=== PATIENT | female | born 1980 | race Caucasian/White ===

== ENCOUNTER 2023-07-10 11:59 | Observation (INO) | payer MEDICAID, SELFPAY ==
[2023-07-10] VITALS (8 sets, daily range): BP systolic 118–142; BP diastolic 67–96; PULSE 67–89; RESP 16–18; TEMP 36.1–36.8; O2SAT 96–100; BMI 16.6
--- NOTE | 2023-07-10 12:43 | EX.ED.SAOD ---
HPI History of Present Illness Chief Complaint: Substance Abuse Informant: patient Narrative Narrative: 42-year-old female seeking detox for the abuse of alcohol and crack cocaine. Patient states that she did have a long period of sobriety in her life. She states for the past several months she has been drinking at least a liter or more of vodka per day. She has also been using crack cocaine and cannabis. She smokes 4 to 5 cigarettes a day only because I am smoking the other things more. She states that she is reached a point where she no longer wants to do this and needs to get her life in order. The patient denies any upcoming/pending legal issues. She states she was once diagnosed with hepatitis C and has subsequently been treated for that. She would like an HIV test. Last drink 3 hours ago. She denies any open wounds or abscesses. [facility] Medical History Substance abuse Alcohol abuse Anxiety Depression Restless leg syndrome Insomnia Home Medications ?Medication ?Instructions ?Recorded ?Last Taken ?Type buprenorphine 8 mg-naloxone 2 mg 1 film sublingual BID OPIOID USE 07/10/23 Unknown History sublingual film (Suboxone) DISORDER Allergy/AdvReac Type Severity Reaction Status Date / Time Penicillins (PCN) Allergy Intermediate SWOLLEN Verified 07/10/23 12:00 THROAT Social History Smoking Status: Current every day smoker tobacco type: cigarettes ROS ROS ED Constitutional Constitutional ED: Denies chills, fever(s) or weight loss Eyes Eyes: Denies change in vision or diplopia ENT ENT ED: Denies ear pain, rhinorrhea or sore throat Cardiovascular Cardiovascular: Denies chest pain, orthopnea, palpitations or racing heartbeat Respiratory/Chest Respiratory/Chest: Denies cough, dyspnea or orthopnea Gastrointestinal Gastrointestinal: Denies abdominal pain, diarrhea, nausea or vomiting Genitourinary Genitourinary ED: Denies dysuria, hematuria or urinary frequency Musculoskeletal Musculoskeletal: Denies arthralgias or myalgias Integumentary Denies abscess or rash Neurologic Neurologic: Denies headache(s) or weakness Psychiatric Psychiatric: Reports anxiety and depression; Denies suicidal ideation or suicidal thoughts Endocrine Endocrinology: Denies polydipsia, polyphagia or polyuria Allergic/Immunologic Allergic/Immunologic ED: Denies mouth swelling, tongue swelling or urticaria EXAM Physical Exam Const Vital Signs: 07/10/23 12:01 07/10/23 13:10 07/10/23 14:00 Temperature 97.6 F L 98.2 F 98.2 F Temperature Source Temporal Oral Pulse Rate 89 67 72 Respiratory Rate 16 16 16 Blood Pressure 125/94 H 127/96 H 121/67 H Blood Pressure Mean 104 106 85 Blood Pressure Source Monitor Blood Pressure Position Semi-Fowlers Blood Pressure Location Left Arm Pulse Ox 96 99 99 Oxygen Delivery Method Room Air Room Air Positive well nourished and well developed General Appearance ED: well developed HEENT Reports normocephalic, head/scalp atraumatic and moist mucous membranes Eyes PERRL and EOMs intact bilaterally Neck no lymphadenopathy, supple and no JVD Resp normal respiratory effort and clear to auscultation bilaterally Cardio regular rate, regular rhythm and no murmurs GI normal to inspection, nondistended, normoactive bowel sounds and non-tender Palpation: soft Back/Spine no CVA tenderness and normal ROM Extremity normal to inspection General Extremety ED: Negative for edema General Extremity: Negative for edema Neuro oriented x3 and CN's II-XII intact bilaterally Sensorium / Orientation: alert Motor Exam: strength 5/5 throughout Psych mental status grossly normal Mood & Affect: anxious and tearful; Negative for depressed Skin no rashes or lesions noted and no wounds MDM MDM MDM Narrative Medical decision making narrative: Basic blood work was obtained per ED addiction protocol. She is positive for cocaine MDMA and alcohol is 115. test negative. Normal liver enzymes. Plan is admission to the hospital for alcohol detox. Patient also received a dose of transdermal nicotine. History & Record Review Discussion w/independent historian: Patient Lab Data Attestation: I reviewed the patient's lab results. Labs: Laboratory Results - last 24 hr 07/10/23 07/10/23 12:50 13:05 WBC 7.4 RBC 4.44 Hgb 13.6 Hct 40.9 MCV 92.1 MCH 30.6 MCHC 33.3 RDW Std Deviation 45.9 H RDW Coeff of Maryann 13.5 Plt Count 266 MPV 9.3 Immature Gran % (Auto) 0.300 Neut % (Auto) 59.8 Lymph % (Auto) 31.2 [place] % (Auto) 6.4 Eos % (Auto) 1.6 Baso % (Auto) 0.7 Absolute Neuts (auto) 4.4 Absolute Lymphs (auto) 2.30 Nucleated RBC % 0 Sodium 138 Potassium 3.6 Chloride 106 Carbon Dioxide 27.0 Anion Gap 5 BUN 5 L Creatinine 0.57 Estim Creat Clear Calc 90.19 Est GFR (MDRD) Af Amer 146 Est GFR (MDRD) Non-Af 121 BUN/Creatinine Ratio 8.7 L Glucose 78 Calcium 8.1 L Total Bilirubin 0.30 Direct Bilirubin 0.11 AST 13 L ALT 10 L Alkaline Phosphatase 63 Total Protein 6.5 Albumin 3.6 Globulin 2.9 Serum , Qual NEGATIVE Urine Opiates Screen NEGATIVE Urine Methadone Screen NEGATIVE Ur Barbiturates Screen NEGATIVE Ur Phencyclidine Scrn NEGATIVE Ur Amphetamines Screen NEGATIVE MDMA (Ecstasy) Screen POSITIVE H U Benzodiazepines Scrn NEGATIVE Urine Cocaine Screen POSITIVE H U Cannabinoids Screen NEGATIVE Ur Drug Screen Comment Ethyl Alcohol 115.0 HIV 1&2 Antibody Non-Reactive Discharge Plan Dx/Rx/DC Orders Clinical Impression: Alcohol abuse, Crack cocaine use Disposition Disposition: Acute Care Hospital [facility]
[2023-07-10 13:00] LABS: Absolute Neutrophil Count 4.4 X10^3/uL (2.0-7.7); Basophil# 0.05 X10^3/uL; Basophil% 0.7 % (0-1); Eosinophil# 0.12 X10^3/uL; Eosinophils% 1.6 % (0-5); Hematocrit 40.9 % (37-47); Hemoglobin 13.6 g/dL (12.0-15.0); Lymphocyte % 31.2 % (19-41); Mean Corp Hgb Conc 33.3 g/dL (32-36); Mean Corpuscular Hgb 30.6 pg (27.0-32.0); Mean Corpuscular Volume 92.1 fL (81-99); Mean Platelet Vol. 9.3 fl (6.2-12.0); Monocyte# 0.47 X10^3/uL; Monocyte% 6.4 % (0-10); NRBC Flagged by Analyzer 0 % (0-5); Neutrophil # 4.42 X10^3/uL (2.7-7.7); Neutrophil % 59.8 % (47-70); Platelet Count 266 K/mm3 (150-450); RBC Distribution Width CV 13.5 % (11.6-14.6); RBC Distribution Width SD 45.9 fl (35.1-43.9); Red Blood Count 4.44 M/mm3 (4.2-5.4); White Blood Count 7.4 K/mm3 (4.4-11.0)
[2023-07-10 13:13] LABS: Internal QC Validated? YES +Cl - CLEAR BKGD; Pregnancy, Serum, hCG Quali. NEGATIVE Negative
[2023-07-10 13:21] LABS: AST(SGOT) 13 U/L (15-37); Alanine Aminotransfer ALT/SGPT 10 U/L (13-56); Albumin, Serum 3.6 g/dL (3.2-5.0); Alkaline Phosphatase 63 U/L (45-117); Anion Gap 5 (5-15); BUN 5 mg/dL (7-18); BUN/Creat Ratio 8.7 RATIO (10-20); Bilirubin, Direct 0.11 mg/dL (0.00-0.30); Calcium,Total 8.1 mg/dL (8.5-10.1); Chloride 106 mmol/L (98-107); Creatinine, Serum 0.57 mg/dL (0.55-1.02); EST Glomerular Filtration Rate 121 mL/min (>60); Est Glom Filt Rate - Afr Amer 146 mL/min (>60); Estimated Creatinine Clearance 90.19 ml/min; Globulin 2.9 g/dL (2.2-4.2); Glucose 78 mg/dL (74-106); Potassium 3.6 mmol/L (3.5-5.1); Protein, Total 6.5 g/dL (6.4-8.2); Sodium Level 138 mmol/L (136-145)
[2023-07-10 13:46] LABS: Amphetamine Urine VISTA NEGATIVE (<1000 ng/mL); Barbiturate Urine VISTA NEGATIVE (< 200 ng/mL); Benzodiazepine Urine VISTA NEGATIVE (< 200 ng/mL); Cocaine Urine VISTA POSITIVE (< 300 ng/mL); Ecstacy Urine VISTA POSITIVE (< 500 ng/mL); Methadone Urine VISTA NEGATIVE (< 300 ng/mL); PCP Urine VISTA NEGATIVE (< 25 ng/mL); THC Urine VISTA NEGATIVE (< 50 ng/mL); Vista UDS pH Range 6
[2023-07-10 13:48] LABS: HIV - WCH Non-Reactive (Nonreactive)
--- NOTE | 2023-07-10 13:50 | HP.PCM.HOS_ITS ---
HPI - General General Date of Admission: 07/10/23 Date of Service: 07/10/23 Chief Complaint: alcohol detox HPI Narrative CHELE YOU, is a 42 F with a PMh as outlined who presents via the ED on 07/10/2023 for acute alcohol withdrawal, seeking detox. Jason drinks about a liter of vodka daily and has been using crack cocaine and cannabis. She says she was sober for about 200 days, but subsequently started using again 60 days ago; she started drinking again in a bid to make her stop using crack cocaine. She also smokes and says she was diagnosed with hep C in the past but is s/p treatment. SHe denied any chest pain, palpitations, dizziness, nausea, vomiting or any other symptoms. Review of systems is otherwise negative. Vitals were Bp of 127/96, CT of 67, RR of 16 and temp of 98.2F. She was saturating at 99% on room air. CBC was unremarkable. CMP was also unremarkable. Urine tox was positive for MDMA and cocaine. Serum alcohol level was 115, and HIV screen was negative. She is being admitted to be managed for acute alcohol withdrawal. [facility] Medical History Substance abuse Alcohol abuse Anxiety Depression Restless leg syndrome Insomnia Home Medications ?Medication ?Instructions ?Recorded ?Last Taken ?Type buprenorphine 8 mg-naloxone 2 mg 1 film sublingual BID OPIOID USE 07/10/23 Unknown History sublingual film (Suboxone) DISORDER Allergy/AdvReac Type Severity Reaction Status Date / Time Penicillins (PCN) Allergy Intermediate SWOLLEN Verified 07/10/23 12:00 THROAT Social History Smoking Status: Current every day smoker tobacco type: cigarettes ROS Constitutional Constitutional: Denies anorexia, chills, fatigue, fever(s), malaise or weakness Eyes Eyes: Denies change in vision ENT HEENT: Denies dysphagia Cardiovascular Cardiovascular: Denies chest pain, dyspnea on exertion, edema, lightheadedness, orthopnea, palpitations, paroxysmal nocturnal dyspnea, rapid heart rate or syncope Respiratory/Chest Respiratory/Chest: Denies cough, dyspnea, shortness of breath at rest or shortness of breath with exertion Gastrointestinal Gastrointestinal: Denies abdominal pain, diarrhea, dyspepsia, nausea or vomiting Genitourinary Genitourinary: Denies difficulty urinating or nocturia Musculoskeletal Musculoskeletal: Denies back pain or joint swelling Neurologic Neurologic: Denies confusion, dizziness, focal weakness, headache(s), numbness or syncope Psychiatric Psychiatric: Denies anxiety Vital Signs Vital Signs Vital Signs: 07/10/23 12:01 07/10/23 13:10 Temperature 97.6 F L 98.2 F Temperature Source Temporal Oral Pulse Rate 89 67 Respiratory Rate 16 16 Blood Pressure 125/94 H 127/96 H Blood Pressure Mean 104 106 Blood Pressure Source Monitor Blood Pressure Position Semi-Fowlers Blood Pressure Location Left Arm Pulse Ox 96 99 Oxygen Delivery Method Room Air Room Air Weight Weight: 100 lb Body Mass Index (BMI) 16.6 Physical Exam Const alert, oriented x3, no apparent distress and average body habitus General Appearance: cooperative HEENT normocephalic, head/scalp atraumatic, hearing grossly normal bilaterally and moist oral mucous membranes Eyes PERRL, EOMs intact bilaterally and conjunctivae normal Neck no lymphadenopathy and supple Resp normal respiratory effort, no retractions, no use of accessory muscles and clear to auscultation bilaterally Cardio regular rate, regular rhythm, S1 normal heart sound, S2 normal heart sound and no murmurs GI normal to inspection, nondistended, normoactive bowel sounds, soft to palpation, non-tender and non-distended Extremity normal to inspection, full ROM and no clubbing, cyanosis or edema Neuro oriented x3, CN's II-XII intact bilaterally, moves all extremities and no focal motor deficits Sensorium / Orientation: awake and alert Motor Exam: strength 5/5 throughout Psych affect normal Results Lab / Micro Data 07/10/23 12:50 07/10/23 12:50 Labs: Laboratory Results - last 24 hr 07/10/23 12:50: WBC 7.4, RBC 4.44, Hgb 13.6, Hct 40.9, MCV 92.1, MCH 30.6, MCHC 33.3, RDW Std Deviation 45.9 H, RDW Coeff of Maryann 13.5, Plt Count 266, MPV 9.3, Immature Gran % (Auto) 0.300, Neut % (Auto) 59.8, Lymph % (Auto) 31.2, [place] % (Auto) 6.4, Eos % (Auto) 1.6, Baso % (Auto) 0.7, Absolute Neuts (auto) 4.4, Absolute Lymphs (auto) 2.30, Nucleated RBC % 0, Sodium 138, Potassium 3.6, Chloride 106, Carbon Dioxide 27.0, Anion Gap 5, BUN 5 L, Creatinine 0.57, Estim Creat Clear Calc 90.19, Est GFR (MDRD) Af Amer 146, Est GFR (MDRD) Non-Af 121, B UN/Creatinine Ratio 8.7 L, Glucose 78, Calcium 8.1 L, Total Bilirubin 0.30, Direct Bilirubin 0.11, AST 13 L, ALT 10 L, Alkaline Phosphatase 63, Total Protein 6.5, Albumin 3.6, Globulin 2.9, Serum , Qual NEGATIVE, Ethyl Alcohol 115.0, HIV 1&2 Antibody Non-Reactive 07/10/23 13:05: Urine Opiates Screen NEGATIVE, Urine Methadone Screen NEGATIVE, Ur Barbiturates Screen NEGATIVE, Ur Phencyclidine Scrn NEGATIVE, Ur Amphetamines Screen NEGATIVE, MDMA (Ecstasy) Screen POSITIVE H, U Benzodiazepines Scrn NEGATIVE, Urine Cocaine Screen POSITIVE H, U Cannabinoids Screen NEGATIVE, Ur Drug Screen Comment Assessment & Plan Assessment/Plan (1) Alcohol abuse: PLAN: Plan #Acute alcohol withdrawal * admit to med surg * drinks about a liter of vodka daily * urine tox positive for MDMA and cocain. Serum alcohol level is 115. * start on alcohol withdrawal protocol with phenobarbital * PO thiamine, folic acid and multivites. * monitor CIWA score * #polysubstance abuse: urine positive for MDMA and cocaine. Counseled to quit. #Nicotine dependence: counseled to quit. Nicotine patch 21mg daily. #History of hep C: says she was treated for it. DVT prophylaxis; low risk. encourage to ambulate. Charges/Coding Visit Charges Inpatient E&M: 23749 Init Hosp L3
--- NOTE | 2023-07-10 14:21 | NURSING ---
MED SURG [facility] ALCOHOL DETOX
[2023-07-10] MEDS: LORazepam 1 MG Tablet PO (18:04)
[2023-07-10] MEDS: hydrOXYzine PAM 25 MG Capsule 50 MG PO (18:54)
[2023-07-10] MEDS: Ondansetron 8 MG Tablet PO (18:54)
[2023-07-10] MEDS: Dicyclomine 10 MG Capsule 20 MG PO (18:55)
[2023-07-10] MEDS: Phenobarbital 32.4 MG Tablet 64.8 MG PO ×2 (18:55→22:00)
[2023-07-10] MEDS: traZODone 100 MG Tablet PO (21:55)
[2023-07-10] MEDS: buprenorphine HCL 8 MG TAB.SUBL SL (21:55)
[2023-07-10] MEDS: Gabapentin 300 MG Capsule PO (21:55)
[2023-07-11] VITALS (7 sets, daily range): BP systolic 90–124; BP diastolic 56–78; PULSE 60–78; RESP 16–18; TEMP 36.5–36.8; O2SAT 97–100
[2023-07-11] MEDS: Phenobarbital 32.4 MG Tablet 64.8 MG PO ×6 (02:12→22:00)
[2023-07-11] MEDS: hydrOXYzine PAM 25 MG Capsule 50 MG PO (06:13)
--- NOTE | 2023-07-11 07:15 | PN.HOSP_ITS ---
Reason for Visit Reason for Visit: Diagnoses Alcohol abuse, uncomplicated (07/10/23) Subjective Subjective Patient is a 42-year-old lady with history of polysubstance abuse admitted with acute alcohol withdrawal admitted to the regular nursing floor where she is currently being managed Objective Data Objective Data Vital Signs: Vital Signs Temp Pulse Resp BP Pulse Ox O2 Del Method 97.9 F 60 16 122/74 H 98 Room Air 07/11/23 06:08 07/11/23 06:08 07/11/23 06:08 07/11/23 06:08 07/11/23 06:08 07/11/23 06:08 Oxygen Delivery Method Room Air Weight: 45.359 kg Body Mass Index (BMI) 16.6 Lab / Micro Data 07/10/23 12:50 07/10/23 12:50 Labs: Laboratory Results - last 24 hr 07/10/23 12:50: WBC 7.4, RBC 4.44, Hgb 13.6, Hct 40.9, MCV 92.1, MCH 30.6, MCHC 33.3, RDW Std Deviation 45.9 H, RDW Coeff of Maryann 13.5, Plt Count 266, MPV 9.3, Immature Gran % (Auto) 0.300, Neut % (Auto) 59.8, Lymph % (Auto) 31.2, [place] % (Auto) 6.4, Eos % (Auto) 1.6, Baso % (Auto) 0.7, Absolute Neuts (auto) 4.4, Absolute Lymphs (auto) 2.30, Nucleated RBC % 0, Sodium 138, Potassium 3.6, Chloride 106, Carbon Dioxide 27.0, Anion Gap 5, BUN 5 L, Creatinine 0.57, Estim Creat Clear Calc 90.19, Est GFR (MDRD) Af Amer 146, Est GFR (MDRD) Non-Af 121, B UN/Creatinine Ratio 8.7 L, Glucose 78, Calcium 8.1 L, Total Bilirubin 0.30, Direct Bilirubin 0.11, AST 13 L, ALT 10 L, Alkaline Phosphatase 63, Total Protein 6.5, Albumin 3.6, Globulin 2.9, Serum , Qual NEGATIVE, Ethyl Alcohol 115.0, HIV 1&2 Antibody Non-Reactive 07/10/23 13:05: Urine Opiates Screen NEGATIVE, Urine Methadone Screen NEGATIVE, Ur Barbiturates Screen NEGATIVE, Ur Phencyclidine Scrn NEGATIVE, Ur Amphetamines Screen NEGATIVE, MDMA (Ecstasy) Screen POSITIVE H, U Benzodiazepines Scrn NEGATIVE, Urine Cocaine Screen POSITIVE H, U Cannabinoids Screen NEGATIVE, Ur Drug Screen Comment Physical Exam Narrative GENERAL: cooperative HEENT: Atraumatic; normocephalic EYES; Anicteric, Normal Conjunctiva NECK; supple, normal thyroid, RESPIRATORY: Diminished to auscultation CARDIOVASCULAR: Regular S1 S2, GI: soft, normoactive bowel sounds, : No Renal angle tenderness; EXTREMITIES: No edema, no clubbing, MUSCULOSKELETAL: no muscle wasting NEURO: Awake; no lateralizing signs. SKIN: No Rash PSYCH; Flat affect Assessment & Plan Assessment/Plan (1) Alcohol abuse: PLAN: Plan Patient is a 42-year-old lady with history of polysubstance abuse admitted with acute alcohol withdrawal admitted to the regular nursing floor where she is currently being managed 1. Acute alcohol withdrawal - Patient has been admitted for treatment with phenobarb taper in addition to adjuvant medications including gabapentin, Bentyl, hydroxyzine and clonidine as needed for alcohol withdrawal symptoms. Patient was also placed on thiamine and folic acid, consultation placed to [facility] counseling services 2. Polysubstance dependence ? Patient urine tox screen was positive for MDMA as well as cocaine counseled on cessation 3. Tobacco dependence ? Counseled on cessation, offered nicotine patch for tobacco cravings 4. DVT prophylaxis ? Low risk with encouraging ambulation Time spent in the patient's overall evaluation,decision-making process, review of diagnostic data, adjustment of management, discussion with other providers, nursing nursing and ancillary staff involved in patient's care documentation, 35 Minutes Charges/Coding Visit Charges Inpatient E&M: 63333 Subs Hosp L2
[2023-07-11] MEDS: Ensure Plus High Protein 120 ML LIQUID PO ×4 (08:15→22:00)
[2023-07-11] MEDS: Thiamine Hydrochloride 100 MG Tablet PO (08:15)
[2023-07-11] MEDS: Folic Acid 1 MG Tablet PO (08:15)
[2023-07-11] MEDS: 0.9% Saline Lock 10 ML Syringe IV (08:20)
[2023-07-11] MEDS: buprenorphine HCL 8 MG TAB.SUBL SL ×2 (10:32→21:59)
--- NOTE | 2023-07-11 11:47 | ADDICTION ---
This tech writer met with PT to conduct ASAM, MSE, AUDIT, DUDIT assessments and to plan for d/c. PT A+Ox4 and participated actively. All assessments completed and placed in PT's chart. PT plans to f/u with [facility] in [place] for in patient treatment services on Saturday if approved, they will continue her detox if need. [facility] will transport to treatment.
[2023-07-11] MEDS: Gabapentin 300 MG Capsule PO (23:09)
[2023-07-12] MEDS: Phenobarbital 32.4 MG Tablet 64.8 MG PO ×3 (02:31→10:01)
[2023-07-12 02:34] VITALS: BP 110/63; PULSE 64; RESP 16; TEMP 36.8; O2SAT 99
[2023-07-12 05:53] VITALS: BP 103/63; PULSE 76; RESP 16; TEMP 36.6; O2SAT 97
[2023-07-12] MEDS: Gabapentin 300 MG Capsule PO (06:03)
[2023-07-12 08:40] VITALS: BP 132/94; PULSE 82; RESP 16; TEMP 36.9; O2SAT 96
[2023-07-12] MEDS: Folic Acid 1 MG Tablet PO (08:44)
[2023-07-12] MEDS: Thiamine Hydrochloride 100 MG Tablet PO (08:44)
[2023-07-12] MEDS: buprenorphine HCL 8 MG TAB.SUBL SL (10:01)
[2023-07-12] MEDS: Ensure Plus High Protein 120 ML LIQUID PO (10:01)
--- NOTE | 2023-07-12 10:02 | PCM.DC ---
Discharge Instructions Diet Discharge Diet: No restrictions Activity Discharge Activity: Return to Normal Activity Weight Bearing Status: Weight bearing as tolerated Dressing / Incision Call your doctor if you observe: Fever of 101 or Higher, Coldness, Increased Pain, Numbness or Tingling, Change in Color, Inability to urinate, Inability to have a bowel movement, Shortness of breath, Dizziness, Fainting spells, Swelling in the ankles, Chest pain, Prolonged hiccupping, Increased palpitations (irregular heartbeat) and Calf discomfort Follow Up Care When: IN 2 WEEKS Test Results: Test results from this visit will be discussed in further detail at your follow-up appointment, if applicable. Discharge Plan Admission Admit Date/Time: 07/10/23 14:02 Primary Reason for Your Visit: Acute alcohol withdrawal syndrome Attending Provider: Keenan Roth Primary Care Provider: Tosha Jeff NP Consulting Providers: Bel Meehan; Neto Ochoa Discharge Orders/Prescriptions Prescriptions: New loperamide 2 mg Capsule 2 mg PO Q4H PRN PRN (Reason: Loose Stools) Qty: 0 0RF thiamine HCl (vitamin B1) [Vitamin B-1] 100 mg Tablet 100 mg PO DAILYCM Qty: 0 0RF folic acid 1 mg Tablet 1 mg PO DAILY@0800 Qty: 0 0RF Continued buprenorphine-naloxone [Suboxone] 8-2 mg film 1 film sublingual BID Referrals / Follow Up: Tosha Jeff NP, [employer] [Primary Care Provider] - Disposition Disposition (needs filled in before D/C Order can be placed): Inpatient Rehab Unit/Facility
--- NOTE | 2023-07-12 10:04 | DS.PCM_ITS ---
Providers Date of Admission: 07/10/23 Date of Discharge: 07/12/23 Primary Care Physician: Tosha Jeff, CHILO, BUSINESS OPERATIONS MANAGER-C Reason For Visit: ACUTE ALCOHOL WITHDRAWAL Diagnosis Discharge Diagnosis (1) Alcohol abuse: Status: Acute Code(s): F10.10 - Alcohol abuse, uncomplicated Plan Patient is a 42-year-old lady with history of polysubstance abuse admitted with acute alcohol withdrawal admitted to the regular nursing floor where she is currently being managed 1. Acute alcohol withdrawal syndrome with history of chronic alcohol use dependence and tolerance - Patient is being admitted to [facility] floor. Patient on phenobarbital based order set along with other adjunctive medications gabapentin, Bentyl, Vistaril, clonidine, Klonopin as needed for alcohol withdrawal symptom control. Patient is on thiamine and folate acid. CIWA monitor. fight manager 180 consulted. 2. Polysubstance dependence including MDMA and crack cocaine ? Patient urine tox screen was positive for MDMA as well as crack cocaine; counseled on cessation 3. Tobacco dependence ? Counseled on cessation, offered nicotine patch for tobacco cravings 4. DVT prophylaxis ? Low risk with encouraging ambulation Patient is being discharged to inpatient substance use rehab. Discharge medication reconciliation done. Discharge follow-up instructions completed. Discharge process discussed with the patient and all questions were answered to patient's satisfaction. Follow with PCP in 1 to 2 weeks Total time spent, exact 35 minutes on discharge meds reconciliation, examination, coordination of care with nurses and ancillary staff, review of imaging and blood test and discussion with the patient on follow-up instructions. Medications at Discharge Home Medications buprenorphine 8 mg-naloxone 2 mg sublingual film (Suboxone) 1 film sublingual BID OPIOID USE DISORDER 07/10/23 folic acid 1 mg tablet 1 mg PO DAILY@0800 #0 tabs 07/12/23 loperamide 2 mg capsule 2 mg PO Q4H PRN PRN Loose Stools #0 caps 07/12/23 thiamine HCl (vitamin B1) 100 mg tablet (Vitamin B-1) 100 mg PO DAILYCM #0 tabs 07/12/23 Physical Exam Narrative Seen and examined. Patient was evaluated by 180 case management manager. Going for inpatient substance use rehab. Patient drinks about a liter of vodka every day and has been using crack cocaine and cannabis. Denies abdominal pain. Denies chronic liver disease or its stigmata. Physical exam General: Alert, Oriented x3, Cooperative HEENT: Atraumatic, PERRLA, EOMI, Normocephalic Oral: No Gingival or Mucosal Lesions/ Ulcerations Neck: Supple, No JVD, Negative Carotid Bruits Chest wall/Lungs: Air entry diminished in bilateral lung bases. No crepitation/rhonchi Cardiovascular: Regular rate, Regular Rhythm, Normal S1, Normal S2, No M/G/R Abdomen: Bowel Sounds Present, Soft, Non Tender, Non-Distended : No dysuria. No renal angle tenderness. No suprapubic tenderness. Extremities: No edema, Capillary Refill Less than 3 Seconds Skin: No rashes, No breakdown Musculoskeletal: No Tenderness to Palpation of Joints or Extremities Neurological: Cranial nerves II-XII grossly intact, DTR 2+/4. No acute focal neurological deficit. Psych/Mental Status: Labile mood. Easily gets tearful. Weight / BMI Weight Weight: 100 lb Body Mass Index (BMI) 16.6 ABG / Lab / Microbiology Data 07/10/23 12:50 07/10/23 12:50 D/C Instructions Discharge Diet: No restrictions Weight Bearing Status: Weight bearing as tolerated Call your doctor if you observe: Fever of 101 or Higher, Coldness, Increased Pain, Numbness or Tingling, Change in Color, Inability to urinate, Inability to have a bowel movement, Shortness of breath, Dizziness, Fainting spells, Swelling in the ankles, Chest pain, Prolonged hiccupping, Increased palpitations (irregular heartbeat) and Calf discomfort When: IN 2 WEEKS Meaningful Use Info Meaningful Use Meaningful Use Diagnoses (Choose all that apply): None applicable Ischemic Stroke Statin Dosing Therapy Reference: STATIN DOSE THERAPY REFERENCE: * Patients > 75 years receive moderate or high dose statin therapy. * Patients 75 years or YOUNGER should receive HIGH intensity statin dose unless contraindicated. You will be required to document reason for non-treatment if statin daily dose does not meet guidelines. HIGH DOSE STATIN THERAPY DAILY Atorvastatin > than or = to 40 mg Rosuvastatin > than or = to 20 mg Amlodipine + Atorvastatin > than or = to 2.5/40 mg Ezetimibe + Simvastatin 10/80 mg Simvastatin 80mg Discharge Plan Admission Admit Date/Time: 07/10/23 14:02 Primary Reason for Your Visit: Acute alcohol withdrawal syndrome Attending Provider: Gonzalez,Keenan Primary Care Provider: Tosha Jeff NP Consulting Providers: Bel Meehan; Neto Ochao Discharge Orders/Prescriptions Prescriptions: New loperamide 2 mg Capsule 2 mg PO Q4H PRN PRN (Reason: Loose Stools) Qty: 0 0RF thiamine HCl (vitamin B1) [Vitamin B-1] 100 mg Tablet 100 mg PO DAILYCM Qty: 0 0RF folic acid 1 mg Tablet 1 mg PO DAILY@0800 Qty: 0 0RF Continued buprenorphine-naloxone [Suboxone] 8-2 mg film 1 film sublingual BID Referrals / Follow Up: Tosha Jeff BUSINESS OPERATIONS MANAGER, BUSINESS OPERATIONS MANAGER-C [Primary Care Provider] - Disposition Disposition (needs filled in before D/C Order can be placed): Inpatient Rehab Unit/Facility Charges/Coding Visit Charges Inpatient E&M: 00182 Disch Hosp >30min
--- NOTE | 2023-07-12 10:12 | NURSING ---
SL D/C AT [facility] AND PT INFORMED THAT HER PICK-UP TIME FOR NEW IS [id number]
[2023-07-12 11:50] VITALS: BP 120/84; PULSE 88; RESP 16; TEMP 36.6; O2SAT 98
== END 2023-07-12 11:41 | DRG 774 ==
LOC: ED 14:45 → MS3 07-11 07:05
PROVIDERS: Admitting Provider Student in an Organized Health Care Education/Training Program; Emergency Provider Emergency Medicine; Referring Provider Student in an Organized Health Care Education/Training Program; Visit Provider Internal Medicine
DX: F10.239 Alcohol dependence with withdrawal, unspecified (principal); F14.20 Cocaine dependence, uncomplicated; F15.20 Other stimulant dependence, uncomplicated; F17.210 Nicotine dependence, cigarettes, uncomplicated; Y90.5 Blood alcohol level of 100-119 mg/100 ml
CPT/HCPCS: 80048; 80076; 80307; 80320; 84703; 85025; 86703; 99221; 99283; A4216; G0378; G0480